=== PATIENT | female | born 1990 | race Caucasian/White ===

== ENCOUNTER 2017-08-16 10:36 | Inpatient (IN) | payer OTHER ==
[2017-08-16] MEDS ORDERED: OXYTOCIN 10 UNIT/ML 1 ML VIAL IM PRN (11:09)
[2017-08-16] MEDS ORDERED: TERBUTALINE 1 MG/ML VIAL SQ PRN (11:09)
[2017-08-16] MEDS ORDERED: AMPICILLIN 2,000 MG in SODIUM CHLORIDE 0.9% 100 ML IVPB STA (11:09)
[2017-08-16] MEDS ORDERED: LIDOCAINE 1% (PF) 10 MG/ML (30 ML SDV) SQ PRN (11:09)
[2017-08-16] MEDS ORDERED: CARBOPROST TROMETHAMINE 250 MCG/ML 1 ML AMP IM PRN (11:09)
[2017-08-16] MEDS ORDERED: METHYLERGONOVINE 0.2 MG/ML 1 ML AMP IM PRN (11:09)
[2017-08-16] MEDS ORDERED: OXYTOCIN 20 UNITS/1000 ML NS 1,000 ML IV SCH ×2 (11:15→17:46)
[2017-08-16] MEDS: LACTATED RINGERS 1,000 ML IV SCH ×2 (11:43→15:03)
--- NOTE | 2017-08-16 12:27 | P.HPOB ---
History of Present Illness H&P Date: 08/16/17 Chief Complaint: Spontaneous rupture of membranes This is a 26-year-old female 2 para 1 with an estimated date of confinement of 08/29/2017, estimated gestational age of 38 and one sevenths weeks, who presents to labor and delivery for complaints of spontaneous rupture of membranes at approximate 7:15 AM this morning. She did state there was clear fluid noted. Contractions began about the time she reached the hospital. course has been uncomplicated. labs: Syphilis antibody-nonreactive Random glucose-69 Hepatitis B surface antigen-negative Hemoglobin-12.1 Rubella-low positive Blood type-be positive Antibody screen-negative Obstetrical ultrasound-normal anatomy One hour Glucola-127 Group B streptococcus-positive Obstetrical history: This is her second . Her first delivery was at 41 weeks. Gynecologic history: No history of sexually transmitted diseases. Social history: She is and a [id number]-gu-[id number] mom. Review of Systems Constitutional: Denies chills, Denies fever Eyes: denies blurred vision, denies pain Ears, nose, mouth and throat: Denies headache, Denies sore throat Cardiovascular: Denies chest pain, Denies shortness of breath Respiratory: Denies cough Gastrointestinal: Reports abdominal pain (Irregular contractions), Denies diarrhea, Denies nausea, Denies vomiting Genitourinary: Reports pelvic pain, Reports Musculoskeletal: Reports low back pain Integumentary: Denies pruritus, Denies rash Neurological: Denies numbness, Denies weakness Psychiatric: Reports depression Past Medical History Past Medical History: No Reported History History of Any Multi-Drug Resistant Organisms: None Reported Past Surgical History: Tonsillectomy Additional Past Surgical History / Comment(s): nasal surgery. polyps removed Past Anesthesia/Blood Transfusion Reactions: Postoperative Nausea & Vomiting ( PONV) Past Psychological History: Depression Smoking Status: Never smoker Past Alcohol Use History: None Reported Past Drug Use History: None Reported - Past Family History Father History Unknown: Yes Additional Family Medical History / Comment(s): Grandmother had asthma and lupus Medications and Allergies Home Medications Medication Instructions Recorded Confirmed Type No Known Home Medications [No 05/06/17 08/16/17 History Known Home Medications] Allergies Allergy/AdvReac Type Severity Reaction Status Date / Time No Known Allergies Allergy Verified 08/16/17 10:47 Exam Osteopathic Statement: *. No significant issues noted on an osteopathic structural exam other than those noted in the History and Physical/Consult. - Vital Signs Vital signs: Vital Signs Temp Pulse Resp BP Pulse Ox 08/16/17 10:47 98.3 F 76 16 101/64 100 Intake and Output 08/15/17 08/16/17 08/16/17 22:59 06:59 14:59 Other: Weight 64.41 kg Patient Weight 08/17/17 06:59 Weight 64.41 kg HEENT: Within normal limits Heart: Regular rate and rhythm Lungs: Clear to auscultation bilaterally Abdomen: Cervix: Initially in triage is 2 cm and 50% with positive amnisure. Current cervical exam is 3-1/2 cm/60-70%/-2 station. Clear fluid is noted. heart tones: Reactive Contractions: Irregular Externally's: Negative Homans Assessment and Plan (1) 38 weeks gestation of Current Visit: Yes Status: Acute Code(s): Z3A.38 - 38 WEEKS GESTATION OF SNOMED Code(s): 57592587 (2) Spontaneous rupture of membranes Current Visit: Yes Status: Acute Code(s): GTG0028 - SNOMED Code(s): 766260166 (3) Group B Streptococcus carrier, +RV culture, currently Current Visit: Yes Status: Acute Code(s): O99.820 - STREPTOCOCCUS B CARRIER STATE COMPLICATING SNOMED Code(s): 9203605606050 Plan: Plan is admission for early active labor. Antibiotic prophylaxis for group B streptococcus. Oxytocin augmentation of labor and expectant management.
[2017-08-16 12:40] VITALS: BMI 24.3
[2017-08-16 12:57] LABS: Basophils % (A) 0 %; Eosinophils % (A) 0 %; HCT 33.8 % (34.0-46.0); HGB 11.2 gm/dL (11.4-16.0); Lymphocytes # (A) 1.2 k/uL (1.0-4.8); Lymphocytes % (A) 20 %; MCHC 33.1 g/dL (31.0-37.0); MCV 93.6 fL (80.0-100.0); Mean Platelet Volume 8.1; Monocytes # (A) 0.4 k/uL (0-1.0); Monocytes % (A) 6 %; Neutrophils # (A) 4.4 k/uL (1.3-7.7); Neutrophils % (A) 72 %; Platelet Count 215 k/uL (150-450); RBC 3.61 m/uL (3.80-5.40); WBC 6.1 k/uL (3.8-10.6)
[2017-08-16] MEDS ORDERED: BUPIVACAINE (PF) 0.25% 30 ML VIAL ONE (14:54)
[2017-08-16] MEDS ORDERED: fentaNYL (PF) 50 MCG/ML 5 ML AMP ONE (14:54)
[2017-08-16] MEDS ORDERED: SODIUM CHLORIDE 0.9% 100 ML BAG ONE (14:54)
[2017-08-16] MEDS ORDERED: AMPICILLIN 1,000 MG in SODIUM CHLORIDE 0.9% 50 ML IVPB SCH (16:00)
--- NOTE | 2017-08-16 16:21 | P.MSEPDOC ---
Presenting Problems - Arrival Data Date of Arrival on Unit: 08/16/17 Time of Arrival on Unit: 10:36 Mode of Transport: Ambulatory - Complaint OB-Reason for Admission/Chief Complaint: Rule Out SROM Comment: pink tinged fluid, ROM 0730 Medical History - Information : 2 Para: 1 Term: 1 : 0 Abortions: Spontaneous or Elective: 0 Number of Living Children: 1 - Gestational Age Gestational Age by RATNA (wks/days): 38 Weeks and 1 Days - History Complications: GBS+ Review of Systems - Review of Systems Constitutional: No problems Breast: No problems ENT: No problems Cardiovascular: No problems Respiratory: No problems Gastrointestinal: No problems Genitourinary: No problems Musculoskeletal: No problems Neurological: No problems Skin: No problems Vital Signs - Temperature Temperature: 98.3 F Temperature Source: Temporal Artery Scan - Pulse Right Pulse Rate: 76 - Respirations Respiratory Rate: 16 Oxygen Delivery Method: Room Air O2 Sat by Pulse Oximetry: 100 - Blood Pressure Right Arm Blood Pressure: 101/64 Blood Pressure Mean: 76 Blood Pressure Source: Automatic Cuff Medical Screen Scoring (Pre) - Cervical Exam Dilation: 1-3 cm = 1 Membranes: Ruptured = 3 - Uterine Contractions Frequency: > 5 minutes apart = 1 Duration: > 40 seconds = 2 - Maternal Vital Signs Maternal Temperature: N/A Maternal Blood Pressure: N/A Signs of Preeclampsia: N/A Maternal Respirations: N/A - Pain Assessment Pain Scale Used: Numeric (1 - 10) Pain Intensity: 0 - Maternal Trauma Maternal Trauma: N/A - Assessment Baseline FHR: 135 Heart Rate - NICHD Category: Category I (Normal) = 0 NST: Reactive Position: N/A Station: N/A - Total Score Total Score (Pre): 7 - Level of Risk Level of Risk: Medium (6-9) Physician Notification (Pre) - Physician Notified Physician Notified Date: 08/16/17 Physician Notified Time: 11:08 Spoke With: Neyda Parks Order Received: Yes (Admit for labor) - Notification Comment Comment: srom, gbs + Disposition - Disposition OB Disposition: Admit I agree with the RN Medical Screening Exam: Yes Risk & Benefit of care provided described in d/c instruction: Yes Diagnosis: ENCOUNTER FOR FULL-TERM UNCOMPLICATED DELIVERY
--- NOTE | 2017-08-16 17:45 | P.PROBDLV ---
Vaginal Delivery Note - . Vaginal Delivery Note: The patient progressed to complete dilation after oxytocin augmentation of labor and epidural anesthesia. She did receive 2 doses of ampicillin due to group B streptococcus positive. Once reaching complete dilation, she began pushing. 's head came to a crown. 's head then delivered across the perineum in a right occiput anterior lie with nuchal cord 1 and a nuchal right hand. Nuchal cord times one was reduced around the infant's head. Nose and mouth were bulb suctioned at the perineum and then with one further push the remainder of the infant easily delivered and was placed on mother's abdomen. Cord was clamped and cut and was taken to warmer for evaluation. A viable male was noted with scores of 9 at 1 minute and 10 at 5 minutes and infant weight pending at this time. Placenta delivered shortly thereafter, intact, with a three-vessel cord. Uterus contracted well after oxytocin was given and uterine massage was carried out. Inspection of the perineum revealed a small first-degree perineal laceration. This area was anesthetized with 1% lidocaine and then sutured with 3-0 Vicryl suture in a running locked fashion. There were noted to be bilateral periurethral abrasions but these were noted to be hemostatic. Estimated blood loss is approximately 150 mL's. Both mother and infant are in stable condition.
[2017-08-16] MEDS ORDERED: LANOLIN CREAM 5 GM TUBE TOPICAL PRN (17:46)
[2017-08-16] MEDS ORDERED: ZOLPIDEM 5 MG TAB PO PRN (17:46)
[2017-08-16] MEDS ORDERED: ACETAMINOPHEN TAB 325 MG TAB PO PRN (17:46)
[2017-08-16] MEDS ORDERED: WITCH HAZEL 1 EACH MED..PAD TOPICAL PRN (17:46)
[2017-08-16] MEDS ORDERED: diphenhydrAMINE 25 MG CAP PO PRN (17:46)
[2017-08-16] MEDS ORDERED: SIMETHICONE 80 MG CHEWABLE PO PRN (17:46)
[2017-08-16] MEDS ORDERED: BENZOCAINE/MENTHOL SPRAY 1 GM/SPRAY AEROSOL TOPICAL PRN (17:46)
[2017-08-16] MEDS ORDERED: diphenhydrAMINE 50 MG CAP PO PRN (17:46)
[2017-08-16] MEDS ORDERED: HYDROCORTISONE 2.5% RECTAL CREAM 30 GM TUBE RECTAL PRN (17:46)
[2017-08-16] MEDS ORDERED: MEASLES-MUMPS-RUBELLA VACC/PF 12,500 UNIT/0.5 ML VIAL SQ ONE (17:46)
[2017-08-16] MEDS ORDERED: diphenhydrAMINE 50 MG/ML 1 ML VIAL IVP PRN ×2 (17:46)
[2017-08-16] MEDS: SENNOSIDES-DOCUSATE SODIUM 1 EACH TAB PO SCH (21:55)
[2017-08-17 07:35] LABS: Basophils % (A) 0 %; Eosinophils # (A) 0.1 k/uL (0-0.7); Eosinophils % (A) 1 %; HGB 10.7 gm/dL (11.4-16.0); Lymphocytes # (A) 1.6 k/uL (1.0-4.8); Lymphocytes % (A) 25 %; MCH 31.1 pg (25.0-35.0); MCHC 32.3 g/dL (31.0-37.0); MCV 96.1 fL (80.0-100.0); Mean Platelet Volume 8.4; Monocytes # (A) 0.4 k/uL (0-1.0); Monocytes % (A) 6 %; Neutrophils # (A) 4.3 k/uL (1.3-7.7); Neutrophils % (A) 67 %; Platelet Count 184 k/uL (150-450); RBC 3.43 m/uL (3.80-5.40); RDW 13.3 % (11.5-15.5); WBC 6.5 k/uL (3.8-10.6)
--- NOTE | 2017-08-17 08:36 | P.PNOBGVD ---
Subjective - Subjective Principal diagnosis: Status post vaginal delivery day #1 Interval history: Patient is doing well. She is breast-feeding. Lochia is decreasing. Pain is well-controlled. Baby has been having some issues with spitting up and was in the nursery for part of the evening. She states the tail board man wants the baby to stay for 48 hours for culture. Patient reports: Reports appetite normal, Reports voiding normally, Reports pain well controlled, Reports ambulating normally : nursing well Objective - Latest Vital Signs Latest vital signs: Vital Signs Temp Pulse Resp BP Pulse Ox 08/17/17 04:00 98.2 F 78 16 103/56 08/17/17 00:00 98.7 F 76 16 103/56 08/16/17 19:36 98.3 F 80 18 99/60 08/16/17 19:06 98.0 F 86 18 95/60 08/16/17 18:36 85 16 95/54 08/16/17 18:21 88 16 93/59 08/16/17 18:06 81 16 94/51 08/16/17 17:51 96 16 95/61 08/16/17 17:36 85 16 112/68 08/16/17 16:21 98.3 F 76 16 101/64 100 08/16/17 10:47 98.3 F 76 16 101/64 100 Intake and Output 08/16/17 08/17/17 08/17/17 22:59 06:59 14:59 Intake Total 1816.9 600 Balance 1816.9 600 Intake: Intake, IV Titration 1816.9 Amount Lactated Ringers 1,000 ml 900 @ 125 mls/hr IV .Q8H [facility] Rx#:[id number] Oxytocin 20 Units/1000 ml 16.9 Ns 1,000 ml @ 1 MILLIUNIT/MIN 3 mls/hr IV .Q24H [facility] Rx#:[id number] Oxytocin 20 Units/1000 ml 900 Ns 1,000 ml @ Per Protocol IV .Q0M [facility] Rx#: [id number] Oral 600 Other: # Voids 2 2 - Exam Extremities: Present: normal. Absent: tenderness, edema Abdomen: Present: normal appearance, soft. Absent: distention, tenderness Uterus: Present: normal, firm. Absent: tenderness - Labs Labs: Abnormal Lab Results - Last 24 Hours (Table) 08/16/17 08/17/17 Range/Units 11:40 07:22 RBC 3.61 L 3.43 L (3.80-5.40) m/uL Hgb 11.2 L 10.7 L (11.4-16.0) gm/dL Hct 33.8 L 33.0 L (34.0-46.0) % Assessment and Plan Assessment: Status post vaginal delivery day #1 (1) 38 weeks gestation of Current Visit: Yes Status: Acute Code(s): Z3A.38 - 38 WEEKS GESTATION OF SNOMED Code(s): 98244365 (2) Spontaneous rupture of membranes Current Visit: Yes Status: Acute Code(s): DID3706 - SNOMED Code(s): 257796951 (3) Group B Streptococcus carrier, +RV culture, currently Current Visit: Yes Status: Acute Code(s): O99.820 - STREPTOCOCCUS B CARRIER STATE COMPLICATING SNOMED Code(s): 6415437436547 Plan: Plan is to continue with care today. Anticipate discharge home tomorrow.
[2017-08-17] MEDS: SENNOSIDES-DOCUSATE SODIUM 1 EACH TAB PO SCH ×2 (09:11→20:27)
[2017-08-17] MEDS: IBUPROFEN 600 MG TAB PO PRN (12:44)
[2017-08-18] MEDS: IBUPROFEN 600 MG TAB PO PRN (02:00)
[2017-08-18 08:44] VITALS: RESP 16
--- NOTE | 2017-08-18 08:54 | P.DS ---
Providers Date of admission: 08/16/17 11:01 Expected date of discharge: 08/18/17 Attending physician: Alysha Faye Primary care physician: Stated None - Discharge Diagnosis(es) (1) 38 weeks gestation of Current Visit: Yes Status: Acute (2) Spontaneous rupture of membranes Current Visit: Yes Status: Acute (3) Group B Streptococcus carrier, +RV culture, currently Current Visit: Yes Status: Acute Hospital Course: This is a 26-year-old female 2 para 1 at 38 and one sevenths weeks who presented with spontaneous rupture of membranes. She did receive antibiotic prophylaxis secondary to group B streptococcus carrier. She also did have oxytocin augmentation of labor. She delivered vaginally a viable male on 08/16/2017 with scores of 9 at 1 minute and 10 at 5 minutes. course has been uncomplicated. They are waiting on 48-hour cultures for the baby prior to discharge. She is breast-feeding. Lochia is decreasing. Pain is well-controlled with ibuprofen. Vital signs are stable. Abdomen is soft with fundus firm and nontender. Extremities show negative Homans. Impression is status post vaginal delivery day #2. Plan is to discharge home today. Routine instructions are given. She will be given a prescription for a breast pump and ibuprofen. She is advised to follow up in the office in 6 weeks for a check. She is advised to call the office if she has any further questions or concerns prior to her appointment time. Procedures: Oxytocin augmentation of labor Spontaneous vaginal delivery of a viable male infant on 08/16/2017 Patient Condition at Discharge: Stable Plan - Discharge Summary New Discharge Prescriptions: New Ibuprofen [Motrin] 600 mg PO Q6HR PRN #60 tab PRN Reason: Mild Pain Or Fever >= 100.5 Discharge Medication List Ibuprofen [Motrin] 600 mg PO Q6HR PRN #60 tab 08/18/17 [Rx] Follow up Appointment(s)/Referral(s): Alysha Faye DO [Doctor of Osteopathic Medicine] - 6 Weeks Activity/Diet/Wound Care/Special Instructions: Instructions 1. Do not begin any exercise program for 3 weeks. 2. Do not resume sexual relations for 3 weeks or longer if uncomfortable. 3. You may take tub baths or showers at any time. 4. You may use tampons if desired after 3 weeks. 5. Keep the area of episiotomy (stitches) clean and dry. 6. If you are not nursing, wear a good fitting, supportive bra during the day and limit fluid intake for at least 1 week to prevent breast engorgement. 7. Call the office, [phone], within the next week to make appointment for your 6 week checkup if it has not already been made. 8. Report any of the following occurrences to the doctor promptly: a. Heavy, excessive bleeding b. Chills, fever c. Burning or frequency of urination d. Pain or redness and breasts if nursing e. Increasing pain or swelling in episiotomy (stitches). In addition to the above instructions, the following additional should be followed: 1. No heavy lifting or straining (exercising) until after 6 week checkup. 2. Keep abdominal incision clean and dry: You may wear a dressing if more comfortable. 3. Make office appointment for 10 days after going home or as instructed by her doctor. Discharge Disposition: HOME SELF-CARE
[2017-08-18 16:24] VITALS: BP 100/60; PULSE 80; TEMP 98.3
[2017-08-18] MEDS: SENNOSIDES-DOCUSATE SODIUM 1 EACH TAB PO SCH (20:10)
== END 2017-08-18 23:15 | disposition home or self-care (01) | DRG 775 ==
LOC: FBPOP 10:36 → 4FBP 11:01
PROVIDERS: ADMIT Obstetrics & Gynecology; ATTEND Obstetrics & Gynecology
PROC: 0HQ9XZZ Repair Perineum Skin, External Approach (ICD-10-PCS; principal; 2017-08-16)
PROC: 3E0R3NZ Introduction of Analgesics, Hypnotics, Sedatives into Spinal Canal, Percutaneous Approach (ICD-10-PCS; principal; 2017-08-16)
PROC: 00HU33Z Insertion of Infusion Device into Spinal Canal, Percutaneous Approach (ICD-10-PCS; principal; 2017-08-16)
PROC: 10E0XZZ Delivery of Products of Conception, External Approach (ICD-10-PCS; principal; 2017-08-16)
DX: O42.02 Full-term premature rupture of membranes, onset of labor within 24 hours of rupture (principal); O69.81X0 Labor and delivery complicated by cord around neck, without compression, not applicable or unspecified; Z37.0 Single live birth; O70.0 First degree perineal laceration during delivery; Z3A.38 38 weeks gestation of pregnancy; O99.824 Streptococcus B carrier state complicating childbirth
CPT/HCPCS: 59025; 84112; 85025; 88307; 90707; 99213

== ENCOUNTER 2017-11-03 06:20 | Day surgery (SDC) | payer OTHER ==
[2017-10-29 09:23] VITALS: BMI 22.6
--- NOTE | 2017-11-02 20:23 | P.HPOB ---
History of Present Illness H&P Date: 11/02/17 Chief Complaint: Family planning This is a 27-year-old female 2 para 2 who presents for laparoscopic bilateral tubal ligation via fulguration for family planning purposes. She recently delivered her last child and would like permanent sterilization. She is currently using condoms for control. Obstetrical history: . History of 2 vaginal deliveries. Gynecologic history: No history of sexual transmitted diseases. Social history: She is single. 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 Review of Systems Constitutional: Denies chills, Denies fever Eyes: denies blurred vision, denies pain Ears, nose, mouth and throat: Denies headache, Denies sore throat Cardiovascular: Denies chest pain, Denies shortness of breath Respiratory: Denies cough Gastrointestinal: Denies abdominal pain, Denies diarrhea, Denies nausea, Denies vomiting Genitourinary: Denies dysuria, Denies hematuria Musculoskeletal: Denies myalgias Integumentary: Denies pruritus, Denies rash Neurological: Denies numbness, Denies weakness Psychiatric: Denies anxiety, Denies depression Endocrine: Denies fatigue Past Medical History Past Medical History: Asthma Additional Past Medical History / Comment(s): Exercise induced Asthma History of Any Multi-Drug Resistant Organisms: None Reported Past Surgical History: Tonsillectomy Additional Past Surgical History / Comment(s): Nasal surgery polyps removed. [place] teeth. Past Anesthesia/Blood Transfusion Reactions: Postoperative Nausea & Vomiting ( PONV) Additional Past Anesthesia/Blood Transfusion Reaction / Comment(s): States had vomiting after last last surgery. Past Psychological History: No Psychological Hx Reported Smoking Status: Never smoker Past Alcohol Use History: None Reported - Past Family History Mother Family Medical History: No Reported History Father History Unknown: Yes Additional Family Medical History / Comment(s): Grandmother had asthma and lupus Medications and Allergies Home Medications Medication Instructions Recorded Confirmed Type Multivitamins, Thera [Multivitamin 1 tab PO DAILY 10/29/17 10/29/17 History (formulary)] Allergies Allergy/AdvReac Type Severity Reaction Status Date / Time No Known Allergies Allergy Verified 10/29/17 09:04 Exam Osteopathic Statement: *. No significant issues noted on an osteopathic structural exam other than those noted in the History and Physical/Consult. HEENT: Within normal limits Heart: Regular rate and rhythm Lungs: Clear to auscultation bilaterally Abdomen: Soft, nontender Pelvic exam: Uterus is small, and anteverted, with no adnexal masses or tenderness noted. Extremities: Negative Homans Assessment and Plan (1) Family planning Status: Acute Code(s): Z30.09 - ENCOUNTER FOR OTH GENERAL CNSL AND ADVICE ON CONTRACEPTION SNOMED Code(s): 481009037 Plan: Proceed with laparoscopic bilateral tubal ligation via fulguration. I have discussed the risks, benefits, and alternative therapies for the above- mentioned procedure and for both sedation/anesthesia as well as necessary blood products administration, if indicated, as they pertain to this patient. The patient has indicated her understanding and acceptance of the risks and procedures discussed.
[~2017-11-03 06:20] MED LIST: DEXAMETHASONE SOD PHOSPHATE 10 MG/ML 1 ML VIAL IV ONE; LACTATED RINGERS 1,000 ML IV SCH; LIDOCAINE 1% 20 ML VIAL (10MG/ML) FOR IV START INTRADERMA PRN; MORPHINE SULFATE 4 MG/0.8 ML SYRINGE (INJ) IV PRN; ONDANSETRON ODT 4 MG TAB PO ONE; Pre Op ABX Message 1 EACH MISC MISCELLANE ONE; SCOPOLAMINE 1.5MG/72HR PATCH TRANSDERM ONE
[2017-11-03] MEDS ORDERED: ONDANSETRON 4 MG/2 ML VIAL IVP ONE (07:15)
[2017-11-03] MEDS ORDERED: LIDOCAINE 1% INJ 10MG/ML (20 ML MDV) ONE (07:32)
[2017-11-03] MEDS ORDERED: GLYCOPYRROLATE 0.2 MG/ML 2 ML VIAL ONE (07:32)
[2017-11-03] MEDS ORDERED: fentaNYL (PF) 50 MCG/ML 2 ML AMP ONE (07:32)
[2017-11-03] MEDS ORDERED: KETOROLAC 30 MG/ML 1 ML VIAL ONE (07:32)
[2017-11-03] MEDS ORDERED: PROPOFOL 10 MG/ML 20 ML VIAL IV ONE (07:32)
[2017-11-03] MEDS ORDERED: MIDAZOLAM 2 MG/2 ML VIAL ONE (07:32)
[2017-11-03] MEDS ORDERED: SUCCINYLCHOLINE CHLORIDE 100 MG/5 ML SYR IV ONE (07:32)
[2017-11-03] MEDS ORDERED: MEPERIDINE 50 MG/ML SYRINGE ONE (07:32)
[2017-11-03] MEDS ORDERED: NEOSTIGMINE 1 MG/ML 10 ML VIAL ONE (07:32)
[2017-11-03] MEDS ORDERED: ROCURONIUM BROMIDE 10 MG/ML 10 ML VIAL IV ONE (07:32)
[2017-11-03] MEDS ORDERED: BUPIVACAINE (PF) 0.25% 30 ML VIAL SQ ONE (08:05)
--- NOTE | 2017-11-03 08:07 | P.OP ---
Date of Procedure: 11/03/17 Preoperative Diagnosis: Family planning Postoperative Diagnosis: Same Procedure(s) Performed: Laparoscopic bilateral tubal ligation via fulguration Anesthesia: GAMALIEL Surgeon: Alysha Faye Estimated Blood Loss (ml): 20 Pathology: none sent Condition: stable Disposition: same day Indications for Procedure: This is a 27-year-old female 2 para 2 who presents for laparoscopic bilateral tubal ligation via fulguration for family planning purposes. She recently delivered her last child and would like permanent sterilization. She is currently using condoms for control. Operative Findings: Uterus is retroverted and sounded to 8 cm. Normal uterus tubes and ovaries are noted. Appendix is visualized and appears normal. Description of Procedure: The patient is taken to the operating room where she is placed in the dorsal lithotomy position. She is prepped and draped in the normal sterile fashion. Examination is performed under anesthesia. Uterus is found to be in a retroverted position. No adnexal masses were palpated. Next a bivalve speculum was placed in the patient's vagina. A single-tooth tenaculum was used to grasp the anterior lip of the cervix. The uterus was sounded to 8 cm. The kroner uterine manipulator was then inserted through the cervix and the balloon was inflated. The single-tooth tenaculum is removed speculum was removed gloves were changed and attention was turned to the abdomen. The infraumbilical fold was grasped in transverse fashion with 2 Allis clamps. A small transverse incision was made with a scalpel. A hemostat was used to carry the incision down to the underlying layer of fascia. A towel clip was placed above the umbilicus for retraction. A 10 mm disposable bladeless trocar was then inserted into the peritoneal cavity under direct visualization. Once inside, pneumoperitoneum was achieved with CO2 gas. The insert was removed and the camera was placed. Intraperitoneal placement was confirmed. No bleeding was noted. Next the patient was placed in Trendelenburg position. A small stab incision was made suprapubically and a 5 mm disposable bladeless trocar was inserted into the peritoneal cavity under direct visualization. Once inside pelvic contents were inspected. Next a bipolar Kleppinger instrument was placed through the inferior trocar and the midportion of each tube was brought away from other structures and completely fulgurated on approximate 2-3 cm segment of each tube. Excellent hemostasis was noted. A picture was taken. Pneumoperitoneum was released after the inferior trocar was removed under direct visualization. The upper trocar was then removed. The fascial incision was closed with 0 Vicryl suture in interrupted [id number] stitch. The skin incisions were then closed with 4-0 Vicryl suture in a subcuticular fashion. Skin incisions are then injected with quarter percent Marcaine. Approximately 7 mL were used. Next the kroner uterine manipulator was removed. Minimal bleeding was noted. All sponge and needle counts are correct. The patient is then taken to recovery room in stable condition.
[2017-11-03 08:28] VITALS: RESP 16; TEMP 97.2
[2017-11-03] MEDS ORDERED: LACTATED RINGERS 1,000 ML IV ONE (08:53)
[2017-11-03 10:10] VITALS: BP 106/69; PULSE 72
== END 2017-11-03 10:45 | disposition home or self-care (01) ==
LOC: OR 06:20
PROVIDERS: ATTEND Obstetrics & Gynecology
DX: Z30.2 Encounter for sterilization (principal); J45.909 Unspecified asthma, uncomplicated; Z82.5 Family history of asthma and other chronic lower respiratory diseases
CPT/HCPCS: 81025; 58670; J2250; J1100; J2710; J2175; J2405; J2001; J3010; J1885; J0330; J2704

== ENCOUNTER → 2018-11-22 | Outpatient (CLI) | payer OTHER ==
--- NOTE | 2018-11-22 09:44 | CT ---
EXAMINATION TYPE: CT sinus wo con DATE OF EXAM: 11/22/2018 COMPARISON: CT facial bones 06/18/2012 HISTORY: Chronic sinus issues, deviated nasal septum. CT DLP: 592 mGycm. Automated Exposure Control for Dose Reduction was Utilized. TECHNIQUE: CT scan of the sinuses is performed without contrast, axial images are obtained, coronal r eformatted images are also reviewed. FINDINGS: There are extensive inflammatory changes within the bilateral maxillary sinuses, the patter n is somewhat lobular and has developed in the interval. Bilateral antrostomies are noted. The orbits show symmetric appearance. Visualized portion of mastoid air cells show no abnormal opacification. The globes are intact bilate rally. Low dense focus within the right parietal lobe is thought to be stable but incompletely evalu ated. Minimal inflammatory change present in the ethmoid air cells, frontal sinus. IMPRESSION: Extensive inflammatory changes present within the bilateral maxillary sinuses, postop luis nges. Additional findings above.
== END | disposition home or self-care (01) ==
LOC: RADCTMAIN 08:16
PROVIDERS: ATTEND Otolaryngology Otolaryngic Allergy
DX: J32.0 Chronic maxillary sinusitis (principal); J34.2 Deviated nasal septum; Z98.890 Other specified postprocedural states
CPT/HCPCS: 70486

== ENCOUNTER → 2019-05-09 | Outpatient (CLI) | payer OTHER ==
--- NOTE | 2019-05-09 16:13 | XR ---
EXAMINATION TYPE: XR lumbosacral spine min 4V DATE OF EXAM: 05/09/2019 COMPARISON: None HISTORY: Lumbago TECHNIQUE: 5 view lumbar spine FINDINGS: There are 5 lumbar-type vertebral bodies. The pedicles are intact. Disc heights are preserv ed. Vertebral body heights are preserved. 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 The re may be a spondylolysis of L5 on the left which is less clearly identified. IMPRESSION: 1. Spondylolysis L5. 2. Acute osseous abnormality not otherwise apparent.
== END | disposition home or self-care (01) ==
LOC: RADXRYALE 15:29
PROVIDERS: ATTEND Physician Assistant Medical
DX: M43.06 Spondylolysis, lumbar region (principal)
CPT/HCPCS: 72110

== ENCOUNTER → 2019-06-20 | Outpatient (CLI) | payer OTHER ==
--- NOTE | 2019-06-20 09:59 | MR ---
EXAMINATION TYPE: MR lumbar spine wo con DATE OF EXAM: 06/20/2019 COMPARISON: X-ray 05/09/2018 HISTORY: Back pain TECHNIQUE: Multiplanar, multisequence images of the lumbar spine were acquired. L1-L2: Normal disc appearance without desiccation. No herniation, protrusion or disc bulging. No ca nal stenosis is present. Foramina are patent bilaterally. L2-L3: Normal disc appearance without desiccation. No herniation, protrusion or disc bulging. No ca nal stenosis is present. Foramina are patent bilaterally. L3-L4: Normal disc appearance without desiccation. No herniation, protrusion or disc bulging. No ca nal stenosis is present. Foramina are patent bilaterally. Hypertrophic changes facets. L4-L5: Normal disc appearance without desiccation. No herniation, protrusion or disc bulging. No ca nal stenosis is present. Foramina are patent bilaterally. Hypertrophic change of the facets. L5-S1: Loss of disc signal and discogenic marrow changes. There is a moderate-sized broad-based centr al and right paracentral disc herniation with mild effacement of thecal sac. Mild hypertrophic change of the facets with mild bilateral foraminal encroachment Lumbar segments are intact. No paraspinal masses are identified. Conus medullaris has a normal appe arance. IMPRESSION: 1. Moderate-sized broad-based central and right paracentral disc herniation L5-S1 with mild effacemen t of the thecal sac. Mild bilateral foraminal encroachment as discussed above.
== END | disposition home or self-care (01) ==
LOC: RADMRIMAIN 09:04
PROVIDERS: ATTEND Orthopaedic Surgery Orthopaedic Surgery of the Spine
DX: M51.26 Other intervertebral disc displacement, lumbar region (principal)
CPT/HCPCS: 72148

== ENCOUNTER → 2023-08-19 | Outpatient (CLI) | payer OTHER ==
--- NOTE | 2023-08-19 09:09 | MR ---
EXAMINATION TYPE: MR lumbar spine wo con DATE OF EXAM: 08/19/2023 COMPARISON: 06/20/2019 HISTORY: Low back pain into buttocks TECHNIQUE: Multiplanar, multisequence images of the lumbar spine were acquired without IV contrast. L1-L2: Normal disc appearance without desiccation. No herniation, protrusion or disc bulging. No ca nal stenosis is present. Foramina are patent bilaterally. L2-L3: Normal disc appearance without desiccation. No herniation, protrusion or disc bulging. No ca nal stenosis is present. Foramina are patent bilaterally. L3-L4: Normal disc appearance without desiccation. No herniation, protrusion or disc bulging. No ca nal stenosis is present. Foramina are patent bilaterally. L4-L5: Normal disc appearance without desiccation. No herniation, protrusion or disc bulging. No ca nal stenosis is present. Foramina are patent bilaterally. L5-S1: Severe disc desiccation vacuum is noted. Posterior disc bulge appreciated with mild left later al recess stenosis. There is slightly noted disc herniation is much improved. No evidence for central stenosis. Degenerative endplate marrow changes appreciated. Lumbar segments are intact. No paraspinal masses are identified. Conus medullaris has a normal appe arance. IMPRESSION: There is desiccation and disc bulging at L5-S1 with left lateral recess stenosis. Previously noted he rniation has improved significantly interval.
== END | disposition home or self-care (01) ==
LOC: RADMRIMAIN 06:20
PROVIDERS: ATTEND Family Medicine
DX: M51.37 Other intervertebral disc degeneration, lumbosacral region (principal); M54.42 Lumbago with sciatica, left side; M48.061 Spinal stenosis, lumbar region without neurogenic claudication
CPT/HCPCS: 72148